=== PATIENT | male | born 2000 | race Caucasian/White ===

== ENCOUNTER 2022-07-07 16:16 | Observation (INO) | payer OTHER ==
[~2022-07-07] VITALS: Ht 190.5 cm; Wt 98.0 kg
[2022-07-07 17:54] LABS: HEMOGLOBIN 16.1 gm/dl (14.0-17.5); RED BLOOD COUNT 5.32 M/UL (4.20-5.50); WHITE BLOOD COUNT 15.9 K/UL (4.5-11.0)
[2022-07-07 18:17] LABS: BUN/CREATININE RATIO 16 (0-10)
[2022-07-08] MEDS ORDERED: HYDROCODON-ACE1 EAC4 PO (10:13)
[2022-07-08] MEDS ORDERED: BACTRIM DS TAB1 EACH PO (12:02)
== END 2022-07-08 16:37 | disposition home or self-care (01) ==
LOC: MED SURG 4 16:16 → M/S 16:34
PROVIDERS: ADMIT Internal Medicine
DX: S81.032A Puncture wound without foreign body, left knee, initial encounter (principal); W45.0XXA Nail entering through skin, initial encounter; Z72.0 Tobacco use
CPT/HCPCS: 80053; 83605; 85025; 85652; 86140; 87040; 97116; 97161; G0378; G0379; J0690; J1100; J1170; J1885; J2001; J2185; J2250; J2405; J2704; J3010; J3370